=== PATIENT | male | born 2000 | race Caucasian/White ===

== ENCOUNTER 2023-11-15 09:13 | Emergency (ER) | payer BC, SELFPAY ==
[2023-11-15 09:22] VITALS: BP 155/106; PULSE 85; RESP 16; TEMP 37.1; O2SAT 95; BMI 31.6
[2023-11-15 10:08] LABS: Basophils Absolute Auto 0.04 K/uL (0.00-0.30); Basophils Percent Auto 0.5 % (0.0-3.0); Eosinophils Absolute Auto 0.15 K/uL (0.00-0.50); Eosinophils Percent Auto 1.8 % (0.0-7.0); Hematocrit 44.3 % (37.0-53.0); Hemoglobin* 15.1 gm/dL (13.5-17.5); Immature Granulocytes Abs Auto 0.02 K/uL (0.00-0.30); Immature Granulocytes Pct Auto 0.2 %; Lymphocytes Absolute Auto 2.95 K/uL (0.90-2.90); Lymphocytes Percent Auto 34.7 % (20-44); Mean Corpuscular HGB Conc 34 gm/dL (32-36); Mean Corpuscular Hemoglobin 30 pg (26-34); Mean Corpuscular Volume 89 fL (80-100); Monocytes Percent Auto 6.6 % (0.0-11.0); Neutrophils Absolute Auto 4.77 K/uL (1.7-7.0); Neutrophils Percent Auto 56.2 % (42.0-72.0); Platelet Count* 239 K/uL (140-440); RDW Coefficient of Variation % 11.2 % (11.5-15.5); Red Blood Count 4.98 m/uL (4.30-5.90); White Blood Count* 8.49 K/uL (4.50-11.00)
--- NOTE | 2023-11-15 10:11 | ED_ITS ---
HPI - General Adult General Date Seen: 11/15/23 Chief complaint: Neuro Symptoms/Altered Deficit Stated complaint: LT sided facial numbness Time Seen by Provider: 11/15/23 09:21 Source: patient Mode of arrival: ambulatory Limitations: no limitations History of Present Illness HPI narrative: Patient is a 23-year-old male presenting to the emergency department for multiple complaints. He has been dealing with chest discomfort and left-sided headache for several months now but states symptoms seemed worse today. States he woke up with some chest discomfort that was different from his usual chest pain. Recently had EGD done showing esophagitis that they believe was causing that chest discomfort. Also states the left side of his face is feeling numb and it is radiating down to his lips. Denies ever having symptoms like this before. Did see urgent care last week for head pressure and was diagnosed with likely temporal arteritis and was started on steroids. Did not start the heather roids yet though due to his upcoming EGD per recommendations of his GI provider. Also states his left arm feels sore and the interior portion feels like it is a sleep. States he slept on his right side. Never had arm discomfort like this before. Denies fevers, chills, shortness of breath, vision changes, hearing difficulty, weakness, abdominal pain, diarrhea, constipation, lightheadedness, dizziness Related Data Home Medications ?Medication ?Instructions ?Recorded ?Confirmed lansoprazole 30 mg capsule,delayed 30 mg PO DAILY 11/15/23 11/15/23 release prednisone 20 mg tablet 20 mg PO BID 11/15/23 11/15/23 Allergies Allergy/AdvReac Type Severity Reaction Status Date / Time Cephalosporins Allergy Mild Rash Verified 11/15/23 09:20 Review of Systems Status of ROS: Reports: 10 or more systems reviewed and unremarkable except as noted in History and below PFSH PFS Surgical History History of tympanostomy tube placement ?Z96.22 - Myringotomy tube(s) status (ICD-10) Family History Father Heart disease Maternal Grandfather Lung cancer Paternal Grandfather Lung cancer Social History Smoking Status: Current every day smoker Do you use any of these nicotine containing products: Vaping Products How often do you have a drink containing alcohol: monthly or less AUDIT-C Alcohol total score: 1 Non-prescribed substance use: former substance user Non-prescribed substance use details: former thc Exam Narrative: Exam Narrative: Const: Well-nourished, Well-developed, in mild distress Eyes: PERRL, no conjunctival injection, and symmetrical lids HENT: Atraumatic external nose and ears. Moist mucous membranes. Neck: Symmetric, trachea midline, No thyromegaly. CVS: RRR, No murmurs or gallops. Peripheral pulses 2+ and equal in all extremities RESP: Unlabored respiratory effort. Clear to auscultation bilaterally. GI: Nontender/Nondistended, No rebound or guarding. MSK:Extremities w/o deformity, Normal Active ROM Skin: Warm, Dry. No rashes or lesions. Neuro: Normal Muscle tone, Cranial nerves 2-12 grossly intact other than decreased sensation to left side of face, normal zfci-to-drkd, normal fin eloisa-to-nose, normal gait, normal strength 5/5 upper lower extremities bilaterally, normal sensation upper and lower extremities bilaterally, normal rapid alternating movements. Psych: Awake, Alert, & Oriented x3. Appropriate mood and affect. Const: Vital Signs, click to edit/add: Vital Signs - 24 hr 11/15/23 09:22 11/15/23 12:00 Temperature 98.7 F Pulse Rate 89 Pulse Rate [Pulse Oximeter] 85 Respiratory Rate 16 14 Blood Pressure 132/97 H Blood Pressure [Ri ght Upper Arm] 155/106 H Pulse Oximetry 95 97 Oxygen Delivery Me thod Room Air Course Vital Signs Vital signs: Initial Vital Signs Temperature 98.7 F 11/15/23 09:22 Temperature Source Temporal Artery Scan 11/15/23 09:22 Pulse Rate 85 11/15/23 09:22 Pulse Rhythm Regular 11/15/23 09:22 Respiratory Rate 16 11/15/23 09:22 Blood Pressure 155/106 H 11/15/23 09:22 Blood Pressure Mean 122 H 11/15/23 09:22 Blood Pressure Position Sitting 11/15/23 09:22 Pulse Oximetry 95 11/15/23 09:22 Oxygen Delivery Method Room Air 11/15/23 09:22 Vital Signs Temperature 98.7 F 11/15/23 09:22 Pulse Rate 85 11/15/23 09:22 Respiratory Rate 16 11/15/23 09:22 Blood Pressure 155/106 H 11/15/23 09:22 Pulse Oximetry 95 11/15/23 09:22 Oxygen Delivery Method Room Air 11/15/23 09:22 Temperature 98.7 F 11/15/23 09:22 Pulse Rate 89 11/15/23 12:00 Respiratory Rate 14 11/15/23 12:00 Blood Pressure 132/97 H 11/15/23 12:00 Pulse Oximetry 97 11/15/23 12:00 Oxygen Delivery Method Room Air 11/15/23 09:22 Medical Decision Making MDM Narrative Medical decision making narrative: Patient is a 23-year-old male presenting for multiple vague symptoms. Hard to differentiate if any of them are related or not. He was told he has temporal arteritis but this seems very unlikely considering he is a 23-year-old male. Will do an ESR to better evaluate this. Will also order CBC, CRP, CMP. With his chest discomfort I will add on a troponin and EKG. Concerning the headache been going on for quite a while now I will do a CT scan to look for any brain masses. Lab work returned showing no concerning abnormalities. Did check an ESR and CRP in those within normal limits. This makes it unlikely this is temporal arteritis. Head CT reviewed by myself and radiologist showed no concerning abnormalities. EKG and troponin showed no concerning findings. The numbness to his forehead and cheeks seem to have improved but he still having numbness around his ear and to his left arm. Was recommended by Dr. Wan of [facility] to do an MRI with and without contrast. This was done showing no concerning abnormalities. She did recommend he follow-up with his primary care provider in Neurology. They were able to get a PCP appointment tomorrow. I informed them to make sure to talk about a Neurology consult. Patient will be discharged. Lab Data Labs: Lab Results 11/15/23 11/15/23 11/15/23 Range/Units 09:50 10:33 10:35 WBC 8.49 (4.50-11.00) K/uL RBC 4.98 (4.30-5.90) m/uL Hgb 15.1 (13.5-17.5) gm/dL Hct 44.3 (37.0-53.0) % MCV 89 (80-100) fL MCH 30 (26-34) pg MCHC 34 (32-36) gm/dL RDW Coeff of Franky 11.2 L (11.5-15.5) % Plt Count 239 (140-440) K/uL Neut % (Auto) 56.2 (42.0-72.0) % Lymph % (Auto) 34.7 (20-44) % Posey % (Auto) 6.6 (0.0-11.0) % Eos % (Auto) 1.8 (0.0-7.0) % Baso % (Auto) 0.5 (0.0-3.0) % Neut # (Auto) 4.77 (1.7-7.0) K/uL Lymph # (Auto) 2.95 H (0.90-2.90) K/uL Posey # (Auto) 0.60 (0.00-0.90) K/UL Eos # (Auto) 0.15 (0.00-0.50) K/uL Baso # (Auto) 0.04 (0.00-0.30) K/uL Abs Immat Gran (auto) 0.02 (0.00-0.30) K/uL Imm/Tot Granulo (auto) 0.2 % ESR 2 (2-15) mm/hr Sodium 138 (135-149) mmol/L Potassium 3.8 (3.6-5.1) mmol/L Chloride 102 (96-114) mmol/L Carbon Dioxide 28 (20-32) mmol/L Anion Gap 8 (7-15) mEq/L BUN 12 (5-24) mg/dL Creatinine 0.8 (0.5-1.5) mg/dL Estimated Creat Clear 147.01 Estimated GFR 127 ml/min Glucose 95 (60-115) mg/dL Calcium 9.5 (8.4-10.6) mg/dL Magnesium 2.0 (1.5-2.6) mg/dL Total Bilirubin 0.7 (0.1-1.5) mg/dL AST 24 (12-35) U/L ALT 31 (4-50) U/L Alkaline Phosphatase 50 (40-150) U/L C-Reactive Protein < 0.5 L (0.5-1.0) mg/dL Total Protein 7.9 (6.0-8.3) g/dL Albumin 5.0 (3.3-5.0) g/dL Lab Acknowledgement Test Added Test Added POC Troponin I 0.00 L (0.01-0.04) ng/ml Imaging Data CT scan - head: Attestation: I have reviewed the pertinent imaging results. Radiologist's impression: No acute intracranial abnormality. Please note that all CT scans at this facility use dose modulation, iterative reconstruction, and/or weight-based dosing when appropriate to reduce radiation dose to as low as reasonably achievable. Dictated by Juan Delgado MD @ 11/15/2023 11:20:14 AM MR Brain: Attestation: I have reviewed the pertinent imaging results. Radiologist's impression: Unremarkable MRI of the brain. Dictated by Iván Romero MD @ 11/15/2023 1:47:43 PM ECG Data Attestation: I personally reviewed and interpreted this ECG as follows: Prior ECG tracings: not available for review Interpretation: Normal sinus rhythm rate of 74 beats per minute, normal intervals, normal axis, no ST to T-wave abnormalities Discharge Plan Discharge Clinical Impression: Numbness Patient Disposition: Home, Self-Care Condition: Stable Instructions: Paresthesia (ED) Additional Instructions: Follow-up with the primary care provider tomorrow as your previously scheduled. Make sure you mention to them that Dr. Wan wanted you to follow-up with neurology due to your symptoms. Return for new worsening symptoms. Prescriptions: No Action prednisone 20 mg tablet 20 mg PO BID lansoprazole 30 mg capsule,delayed release(DR/EC) 30 mg PO DAILY Follow Up/Referrals: Michael Walter MD [Primary Care Provider] - Stand Alone Forms: [employer] Info Instructions
[2023-11-15 10:14] LABS: Slide Review Reflex No
[2023-11-15 10:23] LABS: Chloride* 102 mmol/L (96-114)
[2023-11-15 10:24] LABS: Potassium* 3.8 mmol/L (3.6-5.1); Sodium* 138 mmol/L (135-149)
[2023-11-15 10:26] LABS: Alkaline Phosphatase* 50 U/L (40-150); Anion Gap 8 mEq/L (7-15); Aspartate Amino Transferase* 24 U/L (12-35); Bilirubin Total* 0.7 mg/dL (0.1-1.5); Carbon Dioxide* 28 mmol/L (20-32); Creatinine* 0.8 mg/dL (0.5-1.5); Est. Creatinine Clearance* 147.01; Estimated Glomerular Filt Rate 127 ml/min; Total Protein* 7.9 g/dL (6.0-8.3)
[2023-11-15 10:27] LABS: Alanine Aminotransferase* 31 U/L (4-50); Blood Urea Nitrogen* 12 mg/dL (5-24); Calcium* 9.5 mg/dL (8.4-10.6); Glucose* 95 mg/dL (60-115)
--- NOTE | 2023-11-15 10:44 | CRLHL7_ITS ---
For Patients: As a result of the Century Cures Act, medical imaging exams and procedure reports are released immediately into your electronic medical record. You may view this report before your referring provider. If you have questions, please contact your health care provider. Indication: Headache, left-sided facial numbness Technique: Volumetric multidetector CT images of the head were obtained without the administration of low osmolar intravenous contrast. Comparison: None available Findings: There is no intra-axial or extra-axial fluid collection. There is no mass effect or midline shift. The ventricles and sulci are normal in size and position for age. The brain parenchyma is grossly preserved in attenuation and moe-white differentiation. The orbits and their contents are grossly within normal limits. The bony calvarium is grossly intact. There is minimal polypoid mucosal thickening within the left maxillary sinus. The mastoid air cells are well aerated. Impression: No acute intracranial abnormality. Please note that all CT scans at this facility use dose modulation, iterative reconstruction, and/or weight-based dosing when appropriate to reduce radiation dose to as low as reasonably achievable. Dictated by Juan Delgado MD @ 11/15/2023 11:20:14 AM (Electronically Signed)
[2023-11-15 11:08] LABS: C Reactive Protein* < 0.5 mg/dL (0.5-1.0)
[2023-11-15 11:22] LABS: Erythrocyte SedimentationRate* 2 mm/hr (2-15)
[2023-11-15 12:00] VITALS: BP 132/97; PULSE 89; RESP 14; O2SAT 97
--- NOTE | 2023-11-15 12:10 | CRLHL7_ITS ---
For Patients: As a result of the Century Cures Act, medical imaging exams and procedure reports are released immediately into your electronic medical record. You may view this report before your referring provider. If you have questions, please contact your health care provider. Indication: Left-sided facial numbness. Technique: Multiplanar, multisequence MRI of the brain was performed without and with intravenous contrast. Contrast: 20 cc Dotarem. Comparison: CT head 11/15/2023. Findings: The corpus callosum, pituitary gland and clivus appear intact. Craniocervical junction appears preserved. There is no restricted diffusion. No intracranial hemorrhage. The ventricles are proportionate to the cerebral sulci. The 4th ventricle appears midline. The basal cisterns appear patent. No abnormal extra-axial fluid collection identified. There is no intracranial mass, abnormal mass-effect or midline shift identified. No abnormal enhancement. Major intracranial vascular flow voids appear grossly intact. Both globes are preserved. Moderate-sized mucous retention cyst/polyp left maxillary sinus. Impression: Unremarkable MRI of the brain. Dictated by Iván Romero MD @ 11/15/2023 1:47:43 PM (Electronically Signed)
[2023-11-15 14:15] VITALS: BP 155/106; PULSE 85; RESP 14; TEMP 37.1
== END 2023-11-15 14:15 | disposition home or self-care (01) ==
PROVIDERS: Emergency Provider Student in an Organized Health Care Education/Training Program; PCP Family Medicine
DX: R20.0 Anesthesia of skin (principal)
CPT/HCPCS: 36415; 70450; 70553; 80053; 83735; 84484; 85025; 85651; 86140; 93005; 99283; 99284; 99285; A9575